=== PATIENT | female | born 1990 | race Caucasian/White ===

== ENCOUNTER 2018-03-17 13:26 | Emergency (ER) | payer OTHER ==
[2018-03-17] MEDS ORDERED: Promethazine HCl 25 MG/ML VIAL ONE (13:43)
[2018-03-17 14:24] LABS: ALT (SGPT) 14 U/L (8-55); AST (SGOT) 16 U/L (5-34); Albumin 4.1 g/dL (3.5-5.0); Alkaline Phosphatase 57 U/L (40-150); Anion Gap 16 mmol/L (10-20); BUN (Urea Nitrogen) 7 mg/dL (7.0-18.7); Bilirubin, Total 1.7 mg/dL (0.2-1.2); Calc. Creatinine Clearance 0 mL/min (70-130); Calcium 9.7 mg/dL (7.8-10.44); Carbon Dioxide 19 mmol/L (22-29); Chloride 103 mmol/L (98-107); Estimated GFR-MDRD Greater than 90; Globulin 3.4 g/dL (2.4-3.5); Glucose 92 mg/dL (70-105); Protein, Total 7.5 g/dL (6.0-8.3); Sodium 134 mmol/L (136-145)
[2018-03-17 14:28] LABS: #Eosinphils 0.1 thou/uL (0.0-0.7); #Lymphocytes 0.9 thou/uL (1.20-3.40); #Monocytes 0.4 thou/uL (0.11-0.59); #Neutrophils 8.1 thou/uL (1.40-6.50); %Basophils 0.2 % (0.0-1.0); %Eosinophils 0.7 % (0.0-10.0); %Lymphocytes 9.4 % (21.0-51.0); %Monocytes 4.1 % (0.0-10.0); %Neutrophils 85.7 % (42.0-75.0); Hemoglobin 13.5 g/dL (12.0-16.0); Mean Corpuscular HGB CONC 36.3 g/dL (32.0-36.0); Mean Corpuscular Hemoglobin 31.1 pg (27.0-31.0); Mean Corpuscular Volume 85.7 fl (81.0-99.0); Mean Platelet Volume 6.5 fL (7.4-10.4); Platelet Count 160 thou/uL (130-400); RBC Distribution Width 12.1 % (11.5-14.5); Red Blood Cell (RBC) Count 4.34 mill/uL (4.20-5.40); White Blood Cell (WBC) Count 9.5 thou/uL (4.8-10.8)
[2018-03-17 15:43] LABS: Bilirubin Small (Negative); Blood, Urine Negative (Negative); Clarity CLEAR (Clear); Glucose, Urine (Dipstick) Negative (Negative); Leukocyte Trace (Negative); Nitrite Negative (Negative); Protein, Urine (Dipstick) Trace mg/dL (Neg-Trace); Specific Gravity, Urine 1.016 (1.002-1.036)
[2018-03-17 15:45] LABS: Bacteria/HPF None Seen HPF (None Seen); Hyaline Casts/LPF 0-3 HYALINE CAST LPF (0-3 Hyaline); Pathc Cast-AUWi Flag 0.14 (0-2.49); Squamous Epithelial 0-3 HPF (0-3); WBC/HPF 0-3 HPF (0-3)
== END 2018-03-17 16:53 | disposition home or self-care (01) ==
LOC: ERS 13:26
DX: O99.282 Endocrine, nutritional and metabolic diseases complicating pregnancy, second trimester (principal); E86.0 Dehydration; R11.2 Nausea with vomiting, unspecified; O10.912 Unspecified pre-existing hypertension complicating pregnancy, second trimester; Z3A.16 16 weeks gestation of pregnancy; Z87.891 Personal history of nicotine dependence; Z79.899 Other long term (current) drug therapy; Z79.82 Long term (current) use of aspirin
CPT/HCPCS: 80053; 81003; 81015; 85025; 96365; 96366; J2550

== ENCOUNTER 2018-05-20 17:34 | Day surgery (SDC) | payer OTHER ==
[2018-05-20 18:20] VITALS: BP 130/75; TEMP 100.1; BMI 37.8
[2018-05-20] MEDS ORDERED: Lactated Ringer's 1,000 ML IV SCH (19:15)
[2018-05-20 19:34] LABS: #Lymphocytes 1.5 thou/uL (1.20-3.40); #Monocytes 0.3 thou/uL (0.11-0.59); #Neutrophils 4.2 thou/uL (1.40-6.50); %Basophils 0.1 % (0.0-1.0); %Eosinophils 0.5 % (0.0-10.0); %Lymphocytes 25.1 % (21.0-51.0); %Monocytes 4.3 % (0.0-10.0); Hemoglobin 11.6 g/dL (12.0-16.0); Mean Corpuscular HGB CONC 36.1 g/dL (32.0-36.0); Mean Corpuscular Hemoglobin 30.6 pg (27.0-31.0); Mean Corpuscular Volume 84.6 fL (78.0-98.0); Mean Platelet Volume 6.4 fL (7.4-10.4); Platelet Count 148 thou/uL (130-400); RBC Distribution Width 12.4 % (11.5-14.5)
--- NOTE | 2018-05-20 19:35 | HP ---
DATE OF EVALUATION: 05/20/2018 TIME OF EVALUATION: 1854 to 1905. LOCATION: Labor and Delivery, triage bed B. Patient of Dr. Zafar Sellers. REASON FOR EVALUATION: Twin at 25 weeks and 3 days with left leg pain and "swelling." HISTORY OF PRESENT ILLNESS: In brief, this is a 28-year-old G2, P1 with known multifetal gestation ( dichorionic diamniotic twins) with an EGA of 25 weeks and 3 days. This was conceived with reproductive Endocrinology assistance. She has a history of chronic hypertension and is currently on labetalol 100 mg p.o. t.i.d. She arrived to triage for evaluation of left leg swelling which she st ated was more swollen than the right as she measured it at home with "yarn." She denies any headache s or visual changes, but she does state that her blood pressure at home was elevated at 141/102. Whe n she arrived to triage, her blood pressures were in the 130s/80s. PAST MEDICAL HISTORY: Significant for chronic hypertension. MEDICATIONS: As previously discussed. Medications include Labetalol 100 one p.o. t.i.d. Other medi cations include baby aspirin which she takes every day. ALLERGIES: None. PAST SURGICAL HISTORY: She has had a in the past and this will be a repeat . PHYSICAL EXAMINATION: VITAL SIGNS: She has a temperature of 100.1 and blood pressures here were in the 130s/100s. GENERAL: Clinically, she is in no acute distress and nondiaphoretic. ABDOMEN: Gravid and nontender. There is no gross evidence of bleeding or leakage of fluid. On monitor, heart tones x2 were in the 130s to 140s and moderate variability or moderate compatible with gestational age. No contractions were seen on tocodynamometer. On physical exam, specifically for the left lower extremities, this was deferred until the ultrasound provided more data on the presence or absence of a clot. ASSESSMENT: This is a 28-year-old female at 25 weeks and 3 days with known dichorion ic diamniotic twins with a complaint of left leg swelling. PLAN: 1. Temperatures is 100.0. Although this is not true fever (100.4), I have ordered 1 liter of hydrat ion as well as a CBC and a CMP for conservative care. 2. Due to left leg swelling, I have ordered a complete left lower leg Doppler for evaluation in acco rdance with ACOG guidelines. 3. For now, we will await the CBC and CMP and the ultrasound results for further management.
--- NOTE | 2018-05-20 19:50 | PDOC.EVN ---
Event Note - Event Note Event Note: Lab Check: CBC wnl Awaiting doppler/US and CMP
[2018-05-20 19:58] LABS: ALT (SGPT) 8 U/L (8-55); AST (SGOT) 11 U/L (5-34); Albumin 4.1 g/dL (3.5-5.0); Alkaline Phosphatase 59 U/L (40-150); Anion Gap 14 mmol/L (10-20); BUN (Urea Nitrogen) 7 mg/dL (7.0-18.7); Bilirubin, Total 0.9 mg/dL (0.2-1.2); Calc. Creatinine Clearance 242 mL/min (70-130); Calcium 9.4 mg/dL (7.8-10.44); Carbon Dioxide 20 mmol/L (22-29); Chloride 106 mmol/L (98-107); Estimated GFR-MDRD Greater than 90; Globulin 2.5 g/dL (2.4-3.5); Glucose 79 mg/dL (70-105); Potassium 3.7 mmol/L (3.5-5.1); Protein, Total 6.6 g/dL (6.0-8.3); Sodium 136 mmol/L (136-145)
--- NOTE | 2018-05-20 20:22 | PDOC.EVN ---
Event Note - Event Note Event Note: CMP unremarkable. PE of leg done by me..no overt evidence of abnormality. US pending.
--- NOTE | 2018-05-20 21:22 | PDOC.EVN ---
Event Note - Event Note Event Note: FHTs stable, A&B. No UCs seen. WBC= 6.0, H/H= 11.6/32, plts= 148. SMA all WNL. USG returns with no evidence of DVT. DC home with precautions.
--- NOTE | 2018-05-20 21:38 | ULT ---
ULTRASOUND WITH DOPPLER DUPLEX VENOUS LOWER EXTREMITY LEFT: 05/20/18 HISTORY: 28-year-old female with left lower extremity pain and edema. TECHNIQUE: Color flow Doppler, spectral waveform analysis of pulsed Doppler, and sanchez-scale imaging with janice danielle and augmentation, were used to evaluate the left common femoral, femoral, popliteal, posterior t ibial, and superficial femoral, veins; and the proximal portions of the profunda femoral and greater saphenous, veins. FINDINGS: There is normal compressibility, demonstration of blood flow by color Doppler and pulsed Doppler, and response to augmentation, in all interrogated veins. IMPRESSION: Negative. No deep vein thrombosis in the left lower extremity. jn[] POS: JIN
== END 2018-05-20 21:40 | disposition home or self-care (01) ==
LOC: L&D/OP 17:34
PROVIDERS: ATTEND Obstetrics & Gynecology
DX: O30.042 Twin pregnancy, dichorionic/diamniotic, second trimester (principal); O99.89 Other specified diseases and conditions complicating pregnancy, childbirth and the puerperium; O10.912 Unspecified pre-existing hypertension complicating pregnancy, second trimester; M79.89 Other specified soft tissue disorders; Z3A.25 25 weeks gestation of pregnancy; Z98.890 Other specified postprocedural states
CPT/HCPCS: 36415; 80053; 85025; 96360; 96361; 99283

== ENCOUNTER 2018-06-27 10:51 | Day surgery (SDC) | payer OTHER ==
--- NOTE | 2018-06-27 14:13 | PDOC.EVN ---
Event Note - Event Note Event Note: 28 yo WF with twins at 30 weeks sent over from Dr. Sellers's office with h/o decreases FM x 24 hours. Denies SROM or bleeding. PNC complicated by HTN currently on Labetalol 100 mg TID. FHTs A and B are reassuring. No significant UCs seen. Spoke with Dr. Sellers- requests BPP. BPP ordered.
[2018-06-27 14:14] VITALS: BMI 42.0
--- NOTE | 2018-06-27 14:14 | PDOC.EVN ---
Event Note - Event Note Event Note: Verbal report per Labor RN: Helen 05/15 both babies. Home with precautions as per Dr. Sellers.
--- NOTE | 2018-06-27 14:29 | ULT ---
BIOPHYSICAL PROFILE: Date: 06/27/18 HISTORY: 30 week twin . Decreased movement. FINDINGS: Twin A is in cephalic presentation, maternal right side. heart rate is 141 beats/minute. Twin B is more transversely oriented, maternal left side. heart rate of 133 beats/minute. Twin A has biophysical profile score of 8/8. Twin B has a biophysical profile score of 8/8. IMPRESSION: Twin . biophysical profile of both twins is 8/8. POS: MYIA
== END 2018-06-27 13:20 | disposition home health service (06) ==
LOC: L&D/OP 10:51
PROVIDERS: ATTEND Obstetrics & Gynecology
DX: O30.003 Twin pregnancy, unspecified number of placenta and unspecified number of amniotic sacs, third trimester (principal); O16.3 Unspecified maternal hypertension, third trimester; Z3A.30 30 weeks gestation of pregnancy
CPT/HCPCS: 76819; 99282

== ENCOUNTER 2018-07-10 09:40 | Day surgery (SDC) | payer OTHER ==
[2018-07-10 10:25] VITALS: BMI 39.4
--- NOTE | 2018-07-10 11:12 | PDOC.LDHP ---
Labor and Delivery H&P Chief complaint: other HPI: 28 y/o at 32w5d with twins, patient of Dr. Sellers, presents with elevated BPs at home. Patient with CHTN and superimposed preeclampsia on Labetalol 100mg tid. BPs 140s/90s at home. Denies VB, LOF, ctx, or pih symptoms. +FM x 2. ROS neg for HEENT, CV, pulm, GI, , neuro, psych, skin, musculoskeletal, or constitutional symptoms other than mentioned above. OB History Details: 1 prior term Current complications: di/di twins Past Medical History: CHTN Current medications: pre-myra vitamins, other (labetalol 100mg tid, aspirin 81mg) Previous surgical history: low tranverse CS Allergies/Adverse Reactions: Allergies Allergy/AdvReac Type Severity Reaction Status Date / Time No Known Allergies Allergy Verified 07/10/18 10:23 Social history: none - Physical Exam Vital signs reviewed and normal: yes General: NAD, resting Lungs: nonlabored breathing Abdomen: gravid Extremeties: no edema FHT: category 1 (140s/150s, mod variability, + accels) [place] contractions every: irregular - Assessment 28 y/o at 32w5d with normal BPs and no symptoms. status reassuring with reactive NST x 2. - Plan -: D/c home with precautions. Is scheduled for BPP and appointment tomorrow. Discussed with Dr. Sellers.
== END 2018-07-10 11:00 | disposition home or self-care (01) ==
LOC: L&D/OP 09:40
PROVIDERS: ATTEND Obstetrics & Gynecology
DX: O10.013 Pre-existing essential hypertension complicating pregnancy, third trimester (principal); O11.3 Pre-existing hypertension with pre-eclampsia, third trimester; O30.043 Twin pregnancy, dichorionic/diamniotic, third trimester; Z3A.32 32 weeks gestation of pregnancy; Z79.82 Long term (current) use of aspirin; Z79.899 Other long term (current) drug therapy
CPT/HCPCS: 99282

== ENCOUNTER 2018-07-11 22:37 | Day surgery (SDC) | payer OTHER ==
[2018-07-11 23:21] VITALS: BP 127/77; TEMP 97.9; BMI 39.4
--- NOTE | 2018-07-12 02:53 | PRG ---
OB ER ENCOUNTER DATE OF SERVICE: 07/11/2018 PRIMARY GARMENT FITTER: Dr. Zafar Sellers. CHIEF COMPLAINT: Nausea, vomiting, and concerns for severe preeclampsia. HISTORY OF PRESENT ILLNESS: The patient is a 28-year-old female with an intrauterine of twin gestation at 32 weeks and 6 days, who presented to labor and delivery today after experienci ng some nausea and vomiting x2 episodes today. The patient reports she has not been feeling well and was given instructions to seek medical attention with these symptoms as the patient does have a hist ory of chronic hypertension, superimposed preeclampsia. The patient reports she has weekly visits wi Dr. Sellers as well as weekly blood draws and testing. The patient reports she had a head ache earlier today that resolved with Tylenol. She reports epigastric pain that she attributes to he artburn. The patient denies any laboratory abnormalities. She does take labetalol to control her bl ood pressures, which she has been compliant with. Patient denies current headache, chest pain, short ness of breath. She has had some nausea and vomiting today per HPI. Denies any rash, diarrhea or co nstipation, hip problems, knee problems, muscle weakness, vaginal bleeding or leakage of fluid. PAST MEDICAL HISTORY: Chronic hypertension. PAST SURGICAL HISTORY: section x1. SOCIAL HISTORY: Denies drug, alcohol, or tobacco use. ALLERGIES: No known drug allergies. MEDICATIONS: Labetalol 100 mg twice a day and vitamin. REVIEW OF SYSTEMS: Per HPI. OBSTETRIC LABORATORY DATA: Blood type is A positive. She is rubella immune. HIV is nonreactive. R ID is nonreactive. Hepatitis B surface antigen is nonreactive. PHYSICAL EXAMINATION: VITAL SIGNS: Over the course of an hour of observation, the patient has had blood pressures ranging from 122/75 to 133/88, heart rate in the low 100s, 101, 102, respiratory rate 18, temperature 97.9. GENERAL: She appears to be in no acute distress. She is alert and oriented, cooperative, and pleasa nt to interact with. HEENT: Head: Normocephalic, atraumatic. LUNGS: Clear to auscultation bilaterally. HEART: Regular rate and rhythm. ABDOMEN: Gravid and soft. EXTREMITIES: Nontender, nonedematous with 2+ DTRs, and no clonus. Fetus A has a baseline in the 140s with moderate long-term variability, positive 15 x 15 acceleration s and no decelerations. Baby B has a baseline also in the 140s with moderate long-term variability, positive accelerations, no decelerations. ASSESSMENT AND PLAN: The patient is a 28-year-old female with an intrauterine at 32 weeks and 6 days with a twin gestation and a diagnosis of chronic hypertension and superimposed preec lampsia. The patient is presenting with nausea and vomiting concerns that she may be developing wors ening disease. After review of the patient's history and physical exam and blood pressure, she is be ing discharged to home with normal vital signs and instructions to follow up with her primary OB jessica rrow as scheduled. Fetus has a reactive NST x2.
== END 2018-07-12 00:05 | disposition home or self-care (01) ==
LOC: L&D/OP 22:37
PROVIDERS: ATTEND Obstetrics & Gynecology
DX: O11.3 Pre-existing hypertension with pre-eclampsia, third trimester (principal); Z3A.32 32 weeks gestation of pregnancy
CPT/HCPCS: 99282

== ENCOUNTER 2018-07-16 19:25 | Day surgery (SDC) | payer OTHER ==
[2018-07-16 20:30] VITALS: BMI 37.4
[2018-07-16 20:50] LABS: #Basophils 0.1 thou/uL (0.0-0.2); #Lymphocytes 1.8 thou/uL (1.20-3.40); #Monocytes 0.3 thou/uL (0.11-0.59); #Neutrophils 4.1 thou/uL (1.40-6.50); %Basophils 0.8 % (0.0-1.0); %Eosinophils 0.7 % (0.0-10.0); %Lymphocytes 27.7 % (21.0-51.0); %Monocytes 5.3 % (0.0-10.0); %Neutrophils 65.4 % (42.0-75.0); Hemoglobin 12.6 g/dL (12.0-16.0); Mean Corpuscular HGB CONC 35.8 g/dL (32.0-36.0); Mean Corpuscular Volume 83.9 fL (78.0-98.0); Mean Platelet Volume 7.4 fL (7.4-10.4); Platelet Count 142 thou/uL (130-400); RBC Distribution Width 13.2 % (11.5-14.5); Red Blood Cell (RBC) Count 4.18 mill/uL (4.20-5.40); White Blood Cell (WBC) Count 6.3 thou/uL (4.8-10.8)
[2018-07-16] MEDS: diphenhydrAMINE 50 MG/ML VIAL IVP SCH ×2 (20:56→22:16)
[2018-07-16] MEDS: Metoclopramide HCl 10 MG/2 ML VIAL IVP SCH ×4 (20:59→22:59)
[2018-07-16 21:10] LABS: ALT (SGPT) 9 U/L (8-55); AST (SGOT) 9 U/L (5-34); Albumin 3.8 g/dL (3.5-5.0); Alkaline Phosphatase 96 U/L (40-150); Anion Gap 15 mmol/L (10-20); BUN (Urea Nitrogen) 7 mg/dL (7.0-18.7); Bilirubin, Total 0.9 mg/dL (0.2-1.2); Calc. Creatinine Clearance 221 mL/min (70-130); Calcium 9.5 mg/dL (7.8-10.44); Carbon Dioxide 21 mmol/L (22-29); Chloride 106 mmol/L (98-107); Estimated GFR-MDRD Greater than 90; Globulin 2.7 g/dL (2.4-3.5); Glucose 115 mg/dL (70-105); Potassium 3.6 mmol/L (3.5-5.1); Protein, Total 6.5 g/dL (6.0-8.3); Sodium 138 mmol/L (136-145)
--- NOTE | 2018-07-16 21:52 | PDOC.LDHP ---
Labor and Delivery H&P Chief complaint: other (Elevated BPs) HPI: 28 y/o at 33w4d with twins, patient of Dr. Sellers, presents for elevated BPs at home and a headache that did not improve with Tylenol. Denies any vision changes, VB, LOF, ctx, or decreased FM. ROS neg for HEENT, CV, pulm, GI, , neuro, psych, skin, musculoskeletal, or constitutional symptoms other than mentioned above. OB History Details: 1 prior term LTCS (previously erroneously documented ) Current complications: hypertension, preeclampsia without severe features, di/di twins Past Medical History: CHTN Current medications: pre- vitamins, other (labetalol 100mg TID) Previous surgical history: low tranverse CS Allergies/Adverse Reactions: Allergies Allergy/AdvReac Type Severity Reaction Status Date / Time No Known Allergies Allergy Verified 07/10/18 10:23 - Physical Exam Vital signs reviewed and normal: yes Abnormal vital signs: First BP severe range but using inappropriate sized cuff. Otherwise nl General: NAD, resting Lungs: nonlabored breathing Abdomen: gravid Extremeties: no edema FHT: category 1 (135/140s, mod variability, + accels, no decels) [place] contractions every: None - OB Labs Additional Labs: Laboratory Tests 07/16/18 07/16/18 20:40 20:40 WBC 6.3 RBC 4.18 L Hgb 12.6 Hct 35.1 L MCV 83.9 MCH 30.0 MCHC 35.8 RDW 13.2 Plt Count 142 MPV 7.4 Neutrophils % 65.4 Lymphocytes % 27.7 Monocytes % 5.3 Eosinophils % 0.7 Basophils % 0.8 Neutrophils # 4.1 Lymphocytes # 1.8 Monocytes # 0.3 Eosinophils # 0.0 Basophils # 0.1 Sodium 138 Potassium 3.6 Chloride 106 Carbon Dioxide 21 L Anion Gap 15 BUN 7 Creatinine 0.63 Estimated GFR (MDRD) Greater than 90 Glucose 115 H Calcium 9.5 Total Bilirubin 0.9 AST 9 ALT 9 Alkaline Phosphatase 96 Serum Total Protein 6.5 Albumin 3.8 Globulin 2.7 Albumin/Globulin Ratio 1.4 - Assessment 28 y/o at 33w4d with no e/o severe features. RAI resolved with Reglan and Bendadryl, BPs all wnl. status reassuring with reactive NST. - Plan -: D/c home with precautions. Advised to keep appointments.
== END 2018-07-16 23:20 | disposition home or self-care (01) ==
LOC: L&D/OP 19:25
PROVIDERS: ATTEND Obstetrics & Gynecology
DX: O11.3 Pre-existing hypertension with pre-eclampsia, third trimester (principal); Z3A.33 33 weeks gestation of pregnancy
CPT/HCPCS: 80053; 85025; 96374; 99283; J1200; J2765

== ENCOUNTER 2018-07-19 12:56 | Inpatient (IN) | payer OTHER ==
[~2018-07-19 12:56] MED LIST: Dexamethasone 20 MG/5 ML VIAL ONE; Ketorolac Tromethamine 30 MG/ML VIAL ONE; Ondansetron HCl/PF 4 MG/2 ML Vial ONE; PHENYLEPHRINE-NS 100 MCG/ML 10 ML SYRINGE ONE; ePHEDrine/0.9% NaCl/PF SYRINGE 50 mg/10 ml ONE
[2018-07-19 13:39] VITALS: BMI 38.2
[2018-07-19] MEDS ORDERED: Ondansetron HCl/PF 4 MG/2 ML Vial IVP PRN ×4 (14:48→20:19)
[2018-07-19] MEDS ORDERED: Promethazine HCl 25 MG/ML VIAL IM PRN ×2 (14:48→16:29)
[2018-07-19] MEDS ORDERED: CEFAZOLIN/Water 2 GM/20 ML SYRINGE SLOW IVP SCH (15:00)
[2018-07-19] MEDS ORDERED: Bicitra 30 ML UDCUP PO SCH (15:00)
[2018-07-19] MEDS ORDERED: Bicitra 30 ML UDCUP ONE (15:25)
[2018-07-19] MEDS ORDERED: CEFAZOLIN/Water 2 GM/20 ML SYRINGE ONE (15:25)
[2018-07-19] MEDS ORDERED: Fentanyl 100 MCG/2 ML VIAL ONE (15:30)
--- NOTE | 2018-07-19 15:30 | PDOC.LDHP ---
Labor and Delivery H&P Chief complaint: scheduled section HPI: Pt is a 28yo @ 34.0 weeks sent from the office with advancing superimposed preeclampsia. Pt with di/di twins and hx of CHTN. Pt with increasing proteinuria and outpt BP with diastolic BP in the 100s, has been seen multiple times in L and D for elevated BP. Pt also complains of RAI the last 48hrs. Good FM x 2, sp steroids 2 weeks ago and rescue dose today. Current gestational age (weeks): 34 Due date: 08/30/18 Dating criteria: first trimester ultrasound Grav: 2 Para: 1 OB History Details: CS for NRFT, IOL 36 weeks for severe PIH/superimposed preeclampsia Current complications: preeclampsia with severe features (superimposed ) Abnormal US findings: Yes (di/di twins, ? placenta mass on baby A) Past Medical History: CHTN Current medications: pre-myra vitamins, other (labetalol 100mg TID) Previous surgical history: low tranverse CS Allergies/Adverse Reactions: Allergies Allergy/AdvReac Type Severity Reaction Status Date / Time No Known Allergies Allergy Verified 07/19/18 13:38 Social history: none - Physical Exam Vital signs reviewed and normal: yes Abnormal vital signs: in office 140/90, at home 150/100 General: resting Heart: RRR Lungs: CTAB Abdomen: gravid Extremeties: pitting edema (LE) FHT: category 1 - OB Labs Blood type: A RH: positive Antibody Screen: negative HIV: negative RPR: negative HEPSAg: negative 1 hour GCT: negative GBS: unknown (collected 07/19/18) - Assessment L&D Assessment: term patient in labor - Plan Plan: admit to L&D, to OR for section -: A/P: 28yo (hx of delivery @ 36 weeks for superimposed PIH) prev CS, here for RCS and desires RRS (counseled on risk and benefits, understands the impact on future fertility as steriliity) today for superimposed preeclampsia with advancing si/sx.
[2018-07-19] MEDS ORDERED: Morphine PF 1 MG/ML SYR ONE (15:31)
[2018-07-19] MEDS ORDERED: Lidocaine 1% PF 5 ML VIAL ONE (15:32)
[2018-07-19] MEDS ORDERED: Bupivacaine 0.75% W/DEXTROSE 8.25% 2 ML AMP ONE (15:32)
[2018-07-19] MEDS ORDERED: Ketorolac Tromethamine 30 MG/ML VIAL ONE (15:32)
[2018-07-19] MEDS ORDERED: Oxytocin 10 UNITS/ML VIAL ONE (15:32)
[2018-07-19] MEDS ORDERED: Ondansetron HCl/PF 4 MG/2 ML Vial ONE (15:32)
[2018-07-19] MEDS ORDERED: Dexamethasone 4 mg/ml Vial ONE (15:32)
[2018-07-19] MEDS ORDERED: PHENYLEPHRINE-NS 100 MCG/ML 10 ML SYRINGE ONE (15:32)
[2018-07-19] MEDS ORDERED: ePHEDrine/0.9% NaCl/PF SYRINGE 50 mg/10 ml ONE (15:32)
[2018-07-19] MEDS ORDERED: Lactated Ringer's 1,000 ML IV SCH ×3 (15:55→20:19)
[2018-07-19 16:19] LABS: HBSAg Index 0.22 S/CO (0-0.99); HIV (1/2) Antibody/Antigen Non-Reactive (NonReactive); HIV 1/2 INDEX 0.09 S/CO (<1.00); Hep B Surf Ag Non-Reactive S/CO (NonReactive); Syphilis Antibody Nonreactive (Nonreactive); Syphilis Antibody Index 0.03 S/CO (<1.00 Non-Reactive)
[2018-07-19] MEDS ORDERED: Meperidine HCl/PF 25 MG/ML VIAL SLOW IVP PRN (16:29)
[2018-07-19] MEDS ORDERED: Eucerin (Mineral Oil/Petrolatum,White) 30 gm Jar TOP PRN (16:29)
[2018-07-19] MEDS ORDERED: HYDROmorphone 2 MG/ML VIAL SLOW IVP PRN (16:29)
[2018-07-19] MEDS ORDERED: Naloxone HCl 0.4 mg/ml Vial IVP PRN ×2 (16:29)
[2018-07-19] MEDS ORDERED: diphenhydrAMINE 50 MG/ML VIAL IVP PRN (16:29)
[2018-07-19] MEDS ORDERED: Ketorolac Tromethamine 30 MG/ML VIAL IVP PRN (16:29)
[2018-07-19] MEDS ORDERED: Promethazine HCl 25 MG SUPP PR PRN (16:29)
[2018-07-19] MEDS ORDERED: L&D-Morphine 4 MG/ML VIAL SLOW IVP PRN (16:29)
[2018-07-19] MEDS ORDERED: Naloxone HCl 0.4 mg/ml Vial IV PRN (16:29)
[2018-07-19] MEDS ORDERED: Ketorolac Tromethamine 30 MG/ML VIAL IVP SCH (16:30)
[2018-07-19] MEDS ORDERED: Communication Order-Pharmacy FS SCH (16:30)
[2018-07-19 16:58] LABS: #Monocytes 0.1 thou/uL (0.11-0.59); #Neutrophils 6.6 thou/uL (1.40-6.50); %Basophils 0.2 % (0.0-1.0); %Lymphocytes 12.8 % (21.0-51.0); %Monocytes 1.5 % (0.0-10.0); %Neutrophils 85.5 % (42.0-75.0); ALT (SGPT) 10 U/L (8-55); AST (SGOT) 17 U/L (5-34); Alkaline Phosphatase 111 U/L (40-150); Anion Gap 20 mmol/L (10-20); BUN (Urea Nitrogen) 7 mg/dL (7.0-18.7); Bilirubin, Total 1.6 mg/dL (0.2-1.2); Calc. Creatinine Clearance 230 mL/min (70-130); Calcium 9.5 mg/dL (7.8-10.44); Carbon Dioxide 16 mmol/L (22-29); Chloride 105 mmol/L (98-107); Estimated GFR-MDRD Greater than 90; Globulin 3.1 g/dL (2.4-3.5); Glucose 88 mg/dL (70-105); Hemoglobin 13.1 g/dL (12.0-16.0); Mean Corpuscular HGB CONC 34.2 g/dL (32.0-36.0); Mean Corpuscular Hemoglobin 28.6 pg (27.0-31.0); Mean Corpuscular Volume 83.5 fL (78.0-98.0); Mean Platelet Volume 7.8 fL (7.4-10.4); Platelet Count 151 thou/uL (130-400); Potassium 4.4 mmol/L (3.5-5.1); Protein, Total 7.1 g/dL (6.0-8.3); RBC Distribution Width 13.4 % (11.5-14.5); Red Blood Cell (RBC) Count 4.57 mill/uL (4.20-5.40); Sodium 137 mmol/L (136-145); White Blood Cell (WBC) Count 7.7 thou/uL (4.8-10.8)
--- NOTE | 2018-07-19 17:05 | PDOC.OPDEL ---
OB Operative/Delivery Note Delivery Dr/Surgeon: Marlo Assist: Tania MS3 Pre-Delivery Diagnosis: scheduled section (desires RRS), medically indicated induction (superimposed PIH w di/di twins) Weeks gestation: 34 Anesthesia: spinal - Findings A Sex: female Weight: 4 lb 13.25 oz B Sex: male Weight: 4 lb 14.132 oz - Additional Findings/Plan Placenta delivered: manual removal findings: low transverse hysterotomy without extension, normal tubes, normal ovaries Estimated blood loss: 100ml Post delivery plan: routine recovery
[2018-07-19] MEDS ORDERED: diphenhydrAMINE 25 MG CAP PO PRN (20:19)
[2018-07-19] MEDS ORDERED: Bisacodyl 10 MG SUPP PR PRN (20:19)
[2018-07-19] MEDS ORDERED: Adacel (T-DAP) 0.5 ML VIAL IM ONE (20:19)
[2018-07-19] MEDS ORDERED: NS / Oxytocin 40 units/1000ml 1,000 ML IV SCH (20:19)
[2018-07-19] MEDS ORDERED: Acetaminophen 325 MG TAB PO PRN (20:19)
[2018-07-19] MEDS ORDERED: Lanolin Ointment 7 GM TUBE TOP PRN (20:19)
--- NOTE | 2018-07-19 23:51 | OP ---
DATE OF PROCEDURE: 07/19/2018 PROCEDURES PERFORMED: Repeat low transverse section with risk reducing salpingectomy. SURGEON: Zafar Sellers D.O. ASSISTANTS: Lawrence Sol M.D. and Helen Roblero MS-III. PREOPERATIVE DIAGNOSES: 1. A 28-year-old G2, P0-1-0-1 at 34 weeks. 2. Chronic hypertension with superimposed preeclampsia. 3. Dichorionic diamniotic twins. 4. Status post lung maturity benefit with steroids. 5. Desires risk reducing salpingectomy secondary to family history of cancer. POSTOPERATIVE DIAGNOSIS: 1. A 28-year-old G2, P0-1-0-1 at 34 weeks. 2. Chronic hypertension with superimposed preeclampsia. 3. Dichorionic diamniotic twins. 4. Status post lung maturity benefit with steroids. 5. Desires risk reducing salpingectomy secondary to family history of cancer. 6. Status post delivery. ESTIMATED BLOOD LOSS: 1000 mL. QUANTITATIVE BLOOD LOSS: Pending. COMPLICATIONS: None. OPERATIVE FINDINGS: 1. Vigorous female , Apgars pending at the time of dictation. Weight 4 pounds and 13 ounces, to NICU delivered from vertex presentation. 2. Vigorous male , Apgars pending at the time of dictation. Weight 4 pounds and 14 ounces, de livered from breech presentation to NICU. 3. Normal appearing uterus, tubes and ovaries bilaterally. 4. Fundus firm after placental delivery. 5. Placenta delivered intact. Sent for pathology review with diagnosis of possible placen benny cyst and placenta A, but none noted at the time of gross examination during the section. 6. Surgical sites hemostatic. DESCRIPTION OF PROCEDURE: A timeout was performed in the operating room where the patient again verb alized her understanding and desire for risk reducing salpingectomy, understanding sterilization as c onsequence of the procedure. The patient had spinal anesthesia which was with obtained without diffi culty. The patient was then placed in dorsal supine position with a left lateral tilt. Lopez cathet er was then placed using sterile technique and the abdomen and vagina were prepped and draped in norm al fashion for section. Surgeons were scrubbed in. Anesthesia was tested and found to be a dequate. A Pfannenstiel skin incision was made with a scalpel, a skin incision was carried down thro ugh subcutaneous tissue to the fascia. Once the fascia was reached, it was incised in the midline an d extended superior laterally using curved Freeman scissors. Elvis clamps were placed at the superior border of the fascia, which was sharply and bluntly dissected off the rectus abdominis muscles in bot h caudad and cephalad directions allowing adequate space for delivery of the . The muscle rodriguez ies were bluntly in the midline. The peritoneum was bluntly entered. Some adhesions were noted between the anterior abdominal wall and the uterus and these were taken down with Metzenbaum sc issors and cautery to allow adequate room for delivery of the . The Bala O retractor was sommer lillian into the abdominal cavity for retraction, visualization and protection of the wound. A bladder f lap was created and the bladder was dissected away from the planned hysterotomy site. Low-transverse hysterotomy was made with a scalpel. Clear fluid was noted immediately. The incision was extended gently using a Salgado maneuver. The infant was then delivered through the hysterotomy without difficul ty. The 's nose and mouth were suctioned and he had a vigorous cry at the bedside. Cord was d oubly clamped and cut and the was handed off to the NICU team and presents for delivery. Next , amniotomy of baby B was performed. The feet were grasped at the level of the hysterotomy and with gentle fundal pressure, the infant delivered spontaneously to the shoulders. The shoulders and upper extremities were delivered with gentle rotation and the head spontaneously delivered after the upper extremities were delivered. The infant's nose and mouth were suctioned. The cord was doubly clampe d and cut and the was handed off to the NICU team present for delivery. Cord blood was collec rayna from both of the cords. The placenta was delivered. The placenta baby A was examined with no gr oss abnormalities noted, but will be sent for pathologic review. The uterus was then exteriorized, m assaged to firm, and cleared of clot and debris, was returned to the abdominal cavity for closure of the hysterotomy. Hysterotomy was closed with Monocryl suture in a running locked fashion. Once hyst erotomy was closed and noted to be hemostatic, the uterus was exteriorized again and attention was tu rned to the salpingectomy portion of the procedure. Beginning on the patient's right side, the right fallopian tube was elevated and grasped out to the level of the fimbriated end. Bovie cauterization was used to incise the mesosalpinx around larger fallopian tube vessels. A series of 3-0 chromic th ree passes were tied around the small vessels supplying the fallopian tubes through the mesosalpinx. Once these small vessels were suture ligated, fallopian tube was transected and sent for pathologic review. The dissection areas of the fallopian tube were examined with hemostasis noted. In similar fashion, salpingectomy was performed on the contralateral side. Once this was completed, the salping ectomy sites and hysterotomy sites again were inspected with the uterus in situ with no bleeding note d. The hysterotomy and pericolic gutters were copiously irrigated and suctioned dry. The uterus was noted to be firm. The Bala O retractor was then removed from the abdominal cavity. The muscle be lly and fascia were inspected and any small areas of bleeding were controlled with Bovie cauterizatio n. The fascia was reapproximated with PDS suture from corner to corner and tied separately in the mi dline. Subcutaneous tissue was irrigated and dried. Any small areas of bleeding were controlled wit h Bovie cauterization. Subcutaneous layer was reapproximated with plain gut suture, and the subcutic ular layer was closed with 4-0 Monocryl. Dermabond layer was placed over the closed skin incision fo llowed by sterile dressing. The patient was then cleaned, dried, taken to recovery room in good cond ition.
[2018-07-20] MEDS: Docusate Calcium (SURFAK) 240 MG CAP PO SCH ×3 (01:35→22:10)
[2018-07-20 06:12] LABS: Hemoglobin 10.6 g/dL (12.0-16.0); Mean Corpuscular Hemoglobin 28.8 pg (27.0-31.0); Mean Corpuscular Volume 84.8 fL (78.0-98.0); Mean Platelet Volume 7.8 fL (7.4-10.4); Platelet Count 143 thou/uL (130-400); RBC Distribution Width 13.1 % (11.5-14.5); Red Blood Cell (RBC) Count 3.69 mill/uL (4.20-5.40); White Blood Cell (WBC) Count 8.3 thou/uL (4.8-10.8)
--- NOTE | 2018-07-20 08:09 | PRG ---
DATE OF SERVICE: 07/20/2018 SUBJECTIVE: Patient is a 28-year-old postoperative day #1 status post a repeat for twin ge station at 34 weeks' gestation for superimposed preeclampsia. The patient, this morning, reports bi t she is tolerating liquids. Lopez catheter still in place and is having good pain control and decre ased lochia. OBJECTIVE: VITAL SIGNS: Blood pressure is 117/57, temperature 98.2, pulse of 82, respiratory rate 18. GENERAL: She appears to be in no acute distress. She is alert and oriented, cooperative and pleasan t to interact with. HEAD: Normocephalic, atraumatic. ABDOMEN: Appropriately tender. Incision is clean, dry, and intact. EXTREMITIES: Nontender, nonedematous. LABORATORY DATA: Postdelivery hemoglobin is 10.6, hematocrit 31.3, platelets 143,000 down from 13.1, 38.2, and 151,000. ASSESSMENT AND PLAN: The patient is postoperative day #1 status post a scheduled repeat sec tion for a twin gestation with superimposed preeclampsia. We will continue postoperative care. Anti cipate discharge in the next 2-3 days.
[2018-07-20] MEDS: Labetalol 100 MG TAB PO SCH ×3 (10:07→22:09)
[2018-07-20] MEDS: Ferrous Sulfate 325 MG TAB PO SCH ×2 (10:08→18:46)
[2018-07-20] MEDS: Prenatal Vitamin 1 TAB PO SCH (10:08)
[2018-07-20] MEDS: Simethicone Chewable 80 MG TAB PO PRN (10:09)
[2018-07-20] MEDS: Ibuprofen 800 MG TAB PO SCH ×2 (15:25→22:10)
[2018-07-20] MEDS: Acetaminophen/Codeine 30-300mg Tablet PO PRN (17:12)
--- NOTE | 2018-07-21 06:22 | PDOC.PP ---
Post Progress Note Post Day #: POD#2 Subjective: Resting comfortably, no c/o. PO intake tolerated: yes Flatus: yes Ambulation: yes Vital Signs (12 hours) Pulse BP 07/20/18 22:09 83 119/60 Weight Weight 104.326 kg - Physical Examination General: NAD Respiratory: non-labored breathing Abdominal: no distention Skin: CS incision dry & intact Psychiatric: normal affect Result Diagrams: 07/20/18 05:37 07/19/18 14:08 Additional Labs: Post Labs Blood Type A POSITIVE 07/19/18 14:08 Hep Bs Antigen Non-Reactive S/CO (NonReactive) 07/19/18 14:08 - Assessment/Plan Doing well, BPs look good off meds. Twins in NICU doing well. Advance diet. Ambulate hallway.
[2018-07-21] MEDS: Ibuprofen 800 MG TAB PO SCH ×4 (06:43→21:33)
[2018-07-21] MEDS: Docusate Calcium (SURFAK) 240 MG CAP PO SCH ×2 (09:26→21:33)
[2018-07-21] MEDS: Prenatal Vitamin 1 TAB PO SCH (09:27)
[2018-07-21] MEDS: Simethicone Chewable 80 MG TAB PO PRN (09:27)
[2018-07-21] MEDS: Labetalol 100 MG TAB PO SCH ×3 (09:31→21:31)
[2018-07-21] MEDS: Ferrous Sulfate 325 MG TAB PO SCH ×2 (09:32→17:04)
[2018-07-21] MEDS: Acetaminophen/Codeine 30-300mg Tablet PO PRN ×3 (11:05→21:33)
[2018-07-22] MEDS: Ibuprofen 800 MG TAB PO SCH ×2 (05:07→13:37)
[2018-07-22 07:35] VITALS: BP 112/64; TEMP 97.9
[2018-07-22] MEDS: Ferrous Sulfate 325 MG TAB PO SCH (08:04)
[2018-07-22] MEDS: Docusate Calcium (SURFAK) 240 MG CAP PO SCH (08:05)
[2018-07-22] MEDS: Prenatal Vitamin 1 TAB PO SCH (08:05)
[2018-07-22] MEDS: Acetaminophen/Codeine 30-300mg Tablet PO PRN ×2 (08:06→13:51)
--- NOTE | 2018-07-22 09:23 | PDOC.PP ---
Post Progress Note Post Day #: 3 Subjective: Feeling well, has been declining labetalol for normal BP post , min discomfort, tolerating diet, pumping, ambulating to NICU without difficulty PO intake tolerated: yes Flatus: yes Ambulation: yes Vital Signs (12 hours) Temp Pulse Resp BP BP Pulse Ox 07/22/18 07:34 97.9 F 91 20 112/64 98 07/21/18 21:31 97 132/83 Weight Weight 230 lb - Physical Examination General: NAD Respiratory: non-labored breathing Abdominal: no distention Extremities: negative homans (B) Skin: CS incision dry & intact, no rash Neurological: no gross focal deficits Psychiatric: A&Ox3, normal affect Result Diagrams: 07/20/18 05:37 07/19/18 14:08 Additional Labs: Post Labs Blood Type A POSITIVE 07/19/18 14:08 Hep Bs Antigen Non-Reactive S/CO (NonReactive) 07/19/18 14:08 (1) Status post repeat low transverse section Code(s): Z98.891 - HISTORY OF UTERINE SCAR FROM PREVIOUS SURGERY Status: Acute (2) Pre-eclampsia superimposed on chronic hypertension Code(s): O11.9 - PRE-EXISTING HYPERTENSION WITH PRE-ECLAMPSIA, UNSP TRIMESTER Status: Acute - Assessment/Plan POD#3 sp RCS for di/di twins and CHTN w superimposed PIH. BP not requring regular labetalol at this time, will continue to monitor. Likely DC today.
[2018-07-22] MEDS: Labetalol 100 MG TAB PO SCH (11:33)
== END 2018-07-22 13:30 | disposition home or self-care (01) | DRG 785 ==
LOC: L&D 12:56 → 3SW 20:17
PROVIDERS: ADMIT Obstetrics & Gynecology; ATTEND Obstetrics & Gynecology
PROC: 10D00Z1 Extraction of Products of Conception, Low, Open Approach (ICD-10-PCS; principal; 2018-07-19)
PROC: 0UB70ZZ Excision of Bilateral Fallopian Tubes, Open Approach (ICD-10-PCS; 2018-07-19)
DX: O11.4 Pre-existing hypertension with pre-eclampsia, complicating childbirth (principal); O10.02 Pre-existing essential hypertension complicating childbirth; Z3A.34 34 weeks gestation of pregnancy; Z37.2 Twins, both liveborn; O30.043 Twin pregnancy, dichorionic/diamniotic, third trimester; O34.211 Maternal care for low transverse scar from previous cesarean delivery; Z40.03 Encounter for prophylactic removal of fallopian tube(s); Z80.41 Family history of malignant neoplasm of ovary
CPT/HCPCS: 36415; 51702; 80053; 85025; 85027; 86780; 86850; 86900; 86901; 87081; 87340; 87389; 88302; 88305; 88307; 96374; 99283; J1100; J1200; J1885; J2001; J2274; J2310; J2405; J2590; J2765; J3010; J3490

== ENCOUNTER 2020-03-25 14:14 | Emergency (ER) | payer BC ==
[2020-03-25 15:16] LABS: #Basophils 0.1 thou/uL (0.0-0.2); #Eosinphils 0.1 thou/uL (0.0-0.7); #Lymphocytes 1.9 thou/uL (1.20-3.40); #Monocytes 0.3 thou/uL (0.11-0.59); %Basophils 1.1 % (0.0-1.0); %Eosinophils 1.9 % (0.0-10.0); %Lymphocytes 35.1 % (21.0-51.0); %Monocytes 5.7 % (0.0-10.0); %Neutrophils 56.3 % (42.0-75.0); Hemoglobin 15.6 g/dL (12.0-16.0); Mean Corpuscular HGB CONC 34.9 g/dL (32.0-36.0); Mean Corpuscular Hemoglobin 29.9 pg (27.0-31.0); Mean Corpuscular Volume 85.7 fL (78.0-98.0); Mean Platelet Volume 6.9 fL (7.4-10.4); Platelet Count 174 thou/uL (130-400); RBC Distribution Width 11.8 % (11.5-14.5); Red Blood Cell (RBC) Count 5.23 mill/uL (4.20-5.40); White Blood Cell (WBC) Count 5.4 thou/uL (4.8-10.8)
--- NOTE | 2020-03-25 15:26 | RAD ---
Exam: Chest one view HISTORY:Chest pain Comparison: 10/25/2016 FINDINGS: Cardiac silhouette: Normal Aorta: Unremarkable Pulmonary vessels: Normal Costophrenic angles: Clear LUNGS: No masses or consolidation. Pneumothorax: None Osseous abnormalities: None IMPRESSION: No acute cardiopulmonary process.
[2020-03-25 15:40] LABS: ALT (SGPT) 38 U/L (8-55); AST (SGOT) 23 U/L (5-34); Albumin 4.6 g/dL (3.5-5.0); Alkaline Phosphatase 64 U/L (40-110); Anion Gap 11 mmol/L (10-20); BUN (Urea Nitrogen) 15 mg/dL (7.0-18.7); Bilirubin, Total 0.8 mg/dL (0.2-1.2); Calc. Creatinine Clearance 0 mL/min (70-130); Calcium 9.6 mg/dL (7.8-10.44); Carbon Dioxide 27 mmol/L (22-29); Chloride 105 mmol/L (98-107); Estimated GFR-MDRD 87; Glucose 112 mg/dL (70-105); Potassium 3.7 mmol/L (3.5-5.1); Protein, Total 7.6 g/dL (6.0-8.3); Sodium 139 mmol/L (136-145)
== END 2020-03-25 17:50 | disposition home or self-care (01) ==
LOC: ERS 14:14
DX: R07.9 Chest pain, unspecified (principal); R06.02 Shortness of breath; I10 Essential (primary) hypertension; F17.200 Nicotine dependence, unspecified, uncomplicated
CPT/HCPCS: 71045; 80053; 82550; 84484; 85025; 93005; 94640; 94760; J7620

== ENCOUNTER 2020-05-07 11:14 | Outpatient (CLI) | payer BC | END 2020-05-07 11:15 | disposition home or self-care (01) | LOC: DTY/OP 11:14 | PROVIDERS: ATTEND Surgery | DX: E66.01 Morbid (severe) obesity due to excess calories (principal) | CPT/HCPCS: 97802 ==

== ENCOUNTER 2020-05-26 15:30 | Inpatient (IN) | payer BC, OTHER ==
[2020-06-07] MEDS ORDERED: Heparin 5,000 UNITS/ML VIAL ONE (09:59)
[2020-06-07] MEDS ORDERED: Bupivacaine 0.25% HCL 30 ML VIAL ONE (10:04)
[2020-06-07] MEDS ORDERED: Lidocaine 1% w/Epinephrine 1:100K 20 ML VIAL ONE (10:04)
[2020-06-07] MEDS ORDERED: Lidocaine 2% Jelly 5 ML TUBE ONE (10:49)
[2020-06-07] MEDS ORDERED: Fentanyl 100 MCG/2 ML VIAL ONE ×2 (10:49→13:11)
[2020-06-07] MEDS ORDERED: Rocuronium Bromide 10 MG/ML (10ML VIAL) ONE (11:20)
[2020-06-07] MEDS ORDERED: Ondansetron PF 4 MG/2 ML Vial ONE (11:20)
[2020-06-07] MEDS ORDERED: Dexamethasone 20 MG/5 ML VIAL ONE (11:20)
[2020-06-07] MEDS ORDERED: Lidocaine 1% PF 5 ML VIAL ONE (11:20)
[2020-06-07] MEDS ORDERED: Ketorolac Tromethamine 30 MG/ML VIAL ONE (11:20)
[2020-06-07] MEDS ORDERED: PROPOFOL 200 MG/20 ML VIAL ONE (11:20)
[2020-06-07] MEDS ORDERED: Glycopyrrolate 0.2 MG/ML 5 ML SYRINGE ONE (11:20)
[2020-06-07] MEDS ORDERED: Ondansetron HCl/PF 4 MG/2 ML Vial IVP PRN (12:41)
[2020-06-07] MEDS ORDERED: Promethazine HCl 25 MG/ML VIAL IM PRN ×3 (12:41→14:57)
[2020-06-07] MEDS ORDERED: Promethazine HCl 25 MG/ML VIAL SLOW IVP PRN (12:41)
[2020-06-07] MEDS ORDERED: Zolpidem Tartrate 5 MG TAB PO PRN (12:42)
[2020-06-07] MEDS ORDERED: diphenhydrAMINE 50 MG/ML VIAL IM PRN (12:42)
[2020-06-07] MEDS ORDERED: diphenhydrAMINE 50 MG/ML VIAL IVP PRN ×2 (12:42→14:57)
[2020-06-07] MEDS ORDERED: diphenhydrAMINE 25 MG CAP PO PRN (12:42)
[2020-06-07] MEDS ORDERED: fentaNYL Citrate/PF 2,000 MCG in Sodium Chloride 0.9% 60 ML IV PRN (12:42)
[2020-06-07] MEDS ORDERED: Ondansetron PF 4 MG/2 ML Vial IVP PRN ×2 (12:42→14:57)
[2020-06-07] MEDS ORDERED: Ketorolac Tromethamine 30 MG/ML VIAL IVP PRN (12:42)
[2020-06-07] MEDS ORDERED: Naloxone HCl 0.4 mg/ml Vial IV PRN (12:42)
[2020-06-07] MEDS ORDERED: Communication Order-Pharmacy FS SCH (12:45)
--- NOTE | 2020-06-07 12:48 | OP ---
DATE OF PROCEDURE: 06/07/2020 PREOPERATIVE DIAGNOSES: 1. Morbid obesity with body mass index of 40. 2. Hypertension. POSTOPERATIVE DIAGNOSES: 1. Morbid obesity with body mass index of 40. 2. Hypertension. PROCEDURES PERFORMED: 1. Laparoscopic sleeve gastrectomy with [place] staple line reinforcements and 38-Portuguese bougie. 2. Esophagogastroduodenoscopy. ANESTHESIA: General. ESTIMATED BLOOD LOSS: Minimal. COMPLICATIONS: None. FINDINGS: Normal postoperative EGD. DESCRIPTION OF PROCEDURE: The patient was taken to the operating room and laid supine on the operating room table. After general anesthetic was obtained, arms and legs were double strapped to bariatric table. OG tube was used to decompress the stomach. The abdomen was prepped and draped in a sterile fashion. Left subcostal 5-mm Optiview trocar placed in the usual fashion without injury and high-flow pneumoperitoneum was obtained. Left and right abdominal 12-mm ports as well as a right subcostal 5-mm port were placed under direct visualization. A 5-mm incision made at the xiphoid. Hunag was used to raise the liver off the GE junction. Short gastrics taken down to a distance of 6 cm proximal to the pylorus. The left raul, posterior fundus, and angle of His were completely dissected. Multiple loads of [place] stapling device used to form the sleeve. The 1st was fired up at a distance of 6 cm proximal to the pylorus, angled up towards the incisura. Multiple loads then fired up along the bougie. Stomach was completely transected at the angle of His. Stomach was removed from the left abdominal incision. This fascial defect was closed using GraNee needle and 0 Vicryl tie. All port sites were infiltrated using local anesthetic. There was no bleeding on the staple line. EGD scope was passed through the esophagus, stomach, to the level of duodenum without obstruction. There was no stricture. EGD scope was used to decompress the stomach. It was pulled and removed. Huang retractor was removed under direct visualization without bleeding. All ports were removed under direct visualization without bleeding. Pneumoperitoneum was let down. A 4-0 Monocryl and Dermabond was used to close all the skin incisions. The patient was sent to Recovery in stable condition. All instrument counts, needle counts, and lap counts were correct. Job ID: [id number]
[2020-06-07] MEDS ORDERED: D5 1/2 NS w/20 mEq KCL 1,000 ML ONE (13:23)
[2020-06-07] MEDS ORDERED: Promethazine HCl 25 MG/ML VIAL ONE (13:33)
[2020-06-07] MEDS: D5 1/2 NS w/20 mEq KCL 1,000 ML IV SCH ×2 (14:30→20:44)
[2020-06-07] MEDS ORDERED: Dextrose 5% in Water 1,000 ML IV PRN (14:57)
[2020-06-07] MEDS ORDERED: Hydrocodone-Acetamin 15 ML UDCUP PO PRN (14:57)
[2020-06-07] MEDS ORDERED: hydrALAZINE 20 MG/ML VIAL SLOW IVP PRN (14:57)
[2020-06-07] MEDS ORDERED: ALBUTEROL SULFATE INH PRN (14:57)
[2020-06-07] MEDS ORDERED: Dextrose 50% Abboject 50 ML SYRINGE SLOW IVP PRN (14:57)
[2020-06-07 15:04] VITALS: BMI 38.4
[2020-06-07] MEDS ORDERED: Enoxaparin Sodium 40 MG/0.4 ML SYRINGE SC SCH (21:00)
[2020-06-08 05:05] LABS: #Monocytes 0.4 thou/uL (0.11-0.59); #Neutrophils 4.9 thou/uL (1.40-6.50); %Basophils 0.1 % (0.0-1.0); %Eosinophils 0.2 % (0.0-10.0); %Lymphocytes 16.5 % (21.0-51.0); %Monocytes 6.7 % (0.0-10.0); %Neutrophils 76.5 % (42.0-75.0); Hemoglobin 14.8 g/dL (12.0-16.0); Mean Corpuscular HGB CONC 35.7 g/dL (32.0-36.0); Mean Corpuscular Hemoglobin 30.6 pg (27.0-31.0); Mean Corpuscular Volume 85.7 fL (78.0-98.0); Mean Platelet Volume 7.7 fL (7.4-10.4); Platelet Count 159 thou/uL (130-400); RBC Distribution Width 11.8 % (11.5-14.5); Red Blood Cell (RBC) Count 4.83 mill/uL (4.20-5.40); White Blood Cell (WBC) Count 6.3 thou/uL (4.8-10.8)
[2020-06-08] MEDS: D5 1/2 NS w/20 mEq KCL 1,000 ML IV SCH ×2 (05:09→13:40)
[2020-06-08 05:27] LABS: Anion Gap 13 mmol/L (10-20); BUN (Urea Nitrogen) 6 mg/dL (7.0-18.7); Calc. Creatinine Clearance 197 mL/min (70-130); Calcium 8.8 mg/dL (7.8-10.44); Carbon Dioxide 22 mmol/L (22-29); Chloride 107 mmol/L (98-107); Estimated GFR-MDRD Greater than 90; Glucose 137 mg/dL (70-105); Sodium 138 mmol/L (136-145)
--- NOTE | 2020-06-08 07:17 | PDOC.GSPN ---
Surgery Progress Note: Subj - Subjective Patient reports: pain well controlled (reports some soreness, controlled with fentanyl pump), no flatus Narrative: Pt. is day 1 s/p gastric sleeve. She did not consume anything last night because she fell asleep, but has had sips of water. She walked around the surgical floor yesterday once and is able to ambulate to the restroom with no issues. Surgery Progress Note: Obj - Vital signs Vital signs: Vital Signs - Most Recent Temp Pulse Resp BP Pulse Ox 98.1 F 88 16 147/89 H 96 06/08/20 03:55 06/08/20 03:55 06/08/20 03:55 06/08/20 03:55 06/08/20 03:55 - Physical Exam General: no distress, well developed, well nourished Cardiovascular: regular rate and rhythm Respiratory: clear to auscultation, normal expansion, normal respiratory effort , breath sounds present Abdomen: soft, nondistended, decreased bowel sounds, appropriately tender Wound: dressing clean,dry,intact, healing well Surgery Progress Note: Results - Labs Result Diagrams: 06/08/20 04:45 06/08/20 04:45 Lab results: Laboratory Results - last 24 hr 06/08/20 06/08/20 04:45 04:45 WBC 6.3 RBC 4.83 Hgb 14.8 Hct 41.4 MCV 85.7 MCH 30.6 MCHC 35.7 RDW 11.8 Plt Count 159 MPV 7.7 Neutrophils % 76.5 H Lymphocytes % 16.5 L Monocytes % 6.7 Eosinophils % 0.2 Basophils % 0.1 Neutrophils # 4.9 Lymphocytes # 1.0 L Monocytes # 0.4 Eosinophils # 0.0 Basophils # 0.0 Sodium 138 Potassium 4.0 Chloride 107 Carbon Dioxide 22 Anion Gap 13 BUN 6 L Creatinine 0.69 Estimated GFR (MDRD) Greater than 90 Glucose 137 H Calcium 8.8 Surgery Progress Note: A/P - Problem (1) S/P gastric surgery Current Visit: Yes Code(s): Z98.890 - OTHER SPECIFIED POSTPROCEDURAL STATES Status: Acute - Plan Plan: Pt. is doing well day 1 s/p gastric sleeve. She can be discharged today if her nausea and pain is well-controlled and can tolerate a full liquid diet. She will follow up in the office.
[2020-06-08] MEDS ORDERED: Pantoprazole 40 MG VIAL IVP SCH (09:00)
[2020-06-08 15:50] VITALS: BP 125/81; TEMP 98.2
== END 2020-06-08 16:10 | disposition home or self-care (01) | DRG 621 ==
LOC: EDSTATUS 05-31 15:30 → SURG A 06-07 09:24 → SURG B 06-07 14:30
PROVIDERS: ADMIT Surgery; ATTEND Surgery
PROC: 0DB64Z3 Excision of Stomach, Percutaneous Endoscopic Approach, Vertical (ICD-10-PCS; principal; 2020-06-07)
PROC: 0DJ08ZZ Inspection of Upper Intestinal Tract, Via Natural or Artificial Opening Endoscopic (ICD-10-PCS; 2020-06-07)
DX: E66.01 Morbid (severe) obesity due to excess calories (principal); Z68.41 Body mass index [BMI] 40.0-44.9, adult; I10 Essential (primary) hypertension; E78.00 Pure hypercholesterolemia, unspecified; J45.909 Unspecified asthma, uncomplicated; Z98.51 Tubal ligation status; Z87.891 Personal history of nicotine dependence; Z79.899 Other long term (current) drug therapy
CPT/HCPCS: 36415; 71046; 80048; 80053; 83036; 84703; 85025; 87635; 88307; 88312; 93005; C9113; J0690; J1100; J1644; J1650; J1885; J2405; J2550; J2704; J3010; J3480; S0020; U0003